=== PATIENT | male | born 1960 | race Hispanic/Latino ===

== ENCOUNTER 2018-07-27 12:25 | Emergency (ER) | payer OTHER ==
[~2018-07-27] VITALS: Ht 167.6 cm; Wt 63.5 kg
[2018-07-27 12:35] VITALS: BP 138/74; TEMP 97.9
== END 2018-07-27 13:45 | disposition home or self-care (01) ==
LOC: ED 12:25
DX: M25.511 Pain in right shoulder (principal); M19.011 Primary osteoarthritis, right shoulder
CPT/HCPCS: 96372; 99283; J1885

== ENCOUNTER 2019-03-18 18:27 | Emergency (ER) | payer OTHER ==
[~2019-03-18] VITALS: Ht 167.6 cm; Wt 82.6 kg
[2019-03-18 19:10] VITALS: BP 104/54; TEMP 98.8
[2019-03-19] MEDS ORDERED: ALPR0.5T24 PO (09:01)
[2019-03-19] MEDS ORDERED: DULO60CA2 PO (09:02)
[2019-03-19] MEDS ORDERED: LITHIUM CARB150 MG PO (09:02)
[2019-03-19] MEDS ORDERED: LITHIUM CARB450 MG PO (09:02)
[2019-03-19] MEDS ORDERED: SEROQUEL25 MG PO (09:03)
[2019-03-19] MEDS ORDERED: CETI10TA PO (09:03)
[2019-03-19] MEDS ORDERED: SEROQUEL300 MG PO (09:03)
== END 2019-03-18 19:43 | disposition left against medical advice (07) ==
LOC: ED 18:27
DX: M54.89 Other dorsalgia (principal)
CPT/HCPCS: 99281

== ENCOUNTER 2019-03-19 07:32 | Emergency (ER) | payer OTHER ==
[~2019-03-19] VITALS: Ht 167.6 cm; Wt 82.6 kg
[2019-03-19 07:37] VITALS: BP 159/91; TEMP 98.8
[2019-03-19 08:55] LABS: PLATELET COUNT 226 K/uL (142-355)
[2019-03-19 09:01] LABS: POTASSIUM 3.9 mmol/L (3.6-5.2)
[2019-03-19] MEDS ORDERED: ALPR0.5T24 PO (09:01)
[2019-03-19] MEDS ORDERED: DULO60CA2 PO (09:02)
[2019-03-19] MEDS ORDERED: LITHIUM CARB450 MG PO (09:02)
[2019-03-19] MEDS ORDERED: LITHIUM CARB150 MG PO (09:02)
[2019-03-19] MEDS ORDERED: SEROQUEL25 MG PO (09:03)
[2019-03-19] MEDS ORDERED: CETI10TA PO (09:03)
[2019-03-19] MEDS ORDERED: SEROQUEL300 MG PO (09:03)
== END 2019-03-19 09:30 | disposition home or self-care (01) ==
LOC: ED 07:32
PROVIDERS: Family Medicine
DX: M79.662 Pain in left lower leg (principal); M79.661 Pain in right lower leg; R20.2 Paresthesia of skin; F20.89 Other schizophrenia
CPT/HCPCS: 80053; 80307; 80320; 80329; 81000; 83735; 85027; 93005; 99283

== ENCOUNTER 2019-05-06 00:35 | Outpatient (CLI) | payer OTHER ==
[~2019-05-06 00:35] MED LIST: ALPR0.5T24 PO; CETI10TA PO; DULO60CA2 PO; LITHIUM CARB150 MG PO; LITHIUM CARB450 MG PO; SEROQUEL25 MG PO; SEROQUEL300 MG PO
[2019-05-06] MEDS ORDERED: FURO20TA67 PO (01:01)
== END 2019-05-06 00:38 | disposition short-term general hospital (02) ==
LOC: AMB 00:35
DX: M79.605 Pain in left leg (principal); M79.604 Pain in right leg; M79.672 Pain in left foot; M79.671 Pain in right foot; R22.43 Localized swelling, mass and lump, lower limb, bilateral
CPT/HCPCS: A0425; A0429

== ENCOUNTER 2019-05-06 00:57 | Emergency (ER) | payer OTHER ==
[~2019-05-06] VITALS: Ht 167.6 cm; Wt 84.1 kg
[2019-05-06] MEDS ORDERED: FURO20TA67 PO (01:01)
[2019-05-06 01:25] LABS: PLATELET COUNT 272 K/uL (142-355)
[2019-05-06 02:03] LABS: PARTIAL THROMBOPLASTIN TIME 26.7 SECONDS (24.5-33.6)
[2019-05-06 02:38] LABS: POTASSIUM 3.9 mmol/L (3.6-5.2); SODIUM 138 mmol/L (136-145)
[2019-05-06 03:42] VITALS: BP 131/69; TEMP 97.7
== END 2019-05-06 03:42 | disposition home or self-care (01) ==
LOC: ED 00:57
PROVIDERS: Hospitalist
DX: I50.9 Heart failure, unspecified (principal); R60.0 Localized edema; M79.604 Pain in right leg
CPT/HCPCS: 80053; 82550; 83880; 84484; 85027; 85610; 85730; 93005; 96365; 96375; 99284; J0360; J1885; J1940